=== PATIENT | female | born 1985 | race Two or more races ===

== ENCOUNTER 2017-11-16 18:56 | Emergency (ER) | END 2017-11-16 22:30 | disposition home or self-care (01) ==

== ENCOUNTER 2019-01-25 13:45 | Outpatient (CLI) | payer MEDICAID ==
[~2019-01-25] VITALS: Ht 149.9 cm; Wt 73.6 kg
[~2019-01-25 13:45] MED LIST: DIAZ5TAB PO; IBUP-1542 PO; INSU100C SQ; MED4DP PO; NPH,100I5 SQ
[2019-01-25 14:09] VITALS: Ht 149.9 cm; Wt 73.6 kg
[2019-01-25 14:19] VITALS: BP 128/77; PULSE 78; RESP 18
== END 2019-01-25 15:45 | disposition home or self-care (01) ==
LOC: L-D 13:45 → OBT 13:45
PROVIDERS: ATTEND Specialist
DX: O62.9 Abnormality of forces of labor, unspecified (principal); Z3A.35 35 weeks gestation of pregnancy
CPT/HCPCS: 76818; 81001; 87086; Z7500; G0463

== ENCOUNTER 2019-02-11 18:11 | Inpatient (IN) | payer MEDICAID ==
[~2019-02-11] VITALS: Ht 149.9 cm; Wt 75.0 kg
[~2019-02-11 18:11] MED LIST changes: -DIAZ5TAB PO; -IBUP-1542 PO; -MED4DP PO
[2019-02-11] MEDS ORDERED: LACTATED RINGER'S 1,000 ML IV PRN (18:46)
[2019-02-11] MEDS ORDERED: LIDOCAINE 1% (MPF) 30 ML INJ INJ PRN (19:00)
[2019-02-11] MEDS ORDERED: MISOPROSTOL 200 MCG TAB PR PRN (19:00)
[2019-02-11] MEDS ORDERED: BUTORPHANOL 2 MG INJ IV PRN (19:00)
[2019-02-11] MEDS ORDERED: IBUPROFEN 600 MG TAB PO PRN (19:00)
[2019-02-11] MEDS ORDERED: OXYTOCIN 30 UNITS/LR 500 ML IV PRN (19:00)
[2019-02-11] MEDS ORDERED: METHYLERGONOVINE 0.2 MG INJ IM PRN (19:00)
[2019-02-11] MEDS ORDERED: OXYTOCIN 30 UNITS/LR 500 ML IV SCH ×3 (19:00→19:30)
[2019-02-11] MEDS ORDERED: CARBOPROST 250 MCG INJ IM PRN (19:00)
[2019-02-11] MEDS ORDERED: AMPICILLIN 2 GM/NS (PMX) 100 ML IV ONE (19:00)
[2019-02-11] MEDS ORDERED: MINERAL OIL LIGHT 10 ML VIAL TOP PRN (19:00)
[2019-02-11 19:01] VITALS: Ht 149.9 cm; Wt 75.0 kg
[2019-02-11] MEDS: LACTATED RINGER'S 1,000 ML IV SCH (20:23)
[2019-02-11] MEDS ORDERED: AMPICILLIN 1 GM/NS (PMX) 50 ML IV SCH (23:00)
[2019-02-12] MEDS: DEXTROSE 5%-LR 1,000 ML IV SCH ×4 (00:33→14:47)
[2019-02-12] MEDS ORDERED: AMPICILLIN 1 GM/NS (PMX) 50 ML IV SCH (01:30)
[2019-02-12] MEDS ORDERED: FENTAnyl 2MCG/ML-ROPIV 0.2% 100 ML ONE (02:07)
[2019-02-12] MEDS ORDERED: FENTAnyl 2MCG/ML-ROPIV 0.2% 100 ML BAG EPI SCH (02:30)
[2019-02-12] MEDS ORDERED: NALOXONE (0.4 MG/ML) INJ IV PRN ×2 (02:30→11:00)
[2019-02-12] MEDS: LACTATED RINGER'S 1,000 ML IV SCH ×3 (08:21→18:55)
[2019-02-12] MEDS ORDERED: CEFAZOLIN 2 GM/50 ML (PMX) 50 ML IVPB SCH (08:30)
[2019-02-12] MEDS ORDERED: OXYTOCIN 30 UNITS/LR 500 ML IV SCH (08:30)
[2019-02-12] MEDS ORDERED: MISOPROSTOL 200 MCG TAB PR PRN ×2 (08:30→09:30)
[2019-02-12] MEDS ORDERED: METHYLERGONOVINE 0.2 MG INJ IM PRN (08:30)
[2019-02-12] MEDS ORDERED: CARBOPROST 250 MCG INJ IM PRN (08:30)
[2019-02-12] MEDS ORDERED: OXYTOCIN 30 UNITS/LR 500 ML IV PRN (08:30)
[2019-02-12] MEDS ORDERED: morphine SULFATE/PF (10 MG/10 ML) INJ ONE (08:40)
[2019-02-12] MEDS ORDERED: OXYTOCIN 10 UNIT INJ ONE (08:40)
[2019-02-12] MEDS ORDERED: AZITHROMYCIN 500MG/NS (PMX) 250 ML ONE (09:15)
[2019-02-12] MEDS ORDERED: CEFAZOLIN 1 GM INJ ONE (09:15)
[2019-02-12] MEDS ORDERED: LACTATED RINGER'S 1,000 ML IV SCH (09:21)
[2019-02-12] MEDS ORDERED: OXYCODONE/ACETAMINOPHEN (5/325) TAB PO PRN ×2 (09:30)
[2019-02-12] MEDS ORDERED: NA PHOSPHATE/BIPHOS 133 ML ENEMA PR PRN (09:30)
[2019-02-12] MEDS ORDERED: AZITHROMYCIN 500 MG in SOD CHLORIDE 0.9% 250 ML IVPB ONE (09:30)
[2019-02-12] MEDS ORDERED: LANOLIN HPA 1 PKT TOP PRN (09:30)
[2019-02-12] MEDS ORDERED: ONDANSETRON 4 MG INJ ONE (10:06)
[2019-02-12] MEDS ORDERED: ONDANSETRON 4 MG INJ IV PRN (11:00)
[2019-02-12] MEDS ORDERED: morphine 2 MG INJ IV PRN (11:00)
[2019-02-12] MEDS ORDERED: DIPHENHYDRAMINE 50 MG INJ IV PRN (11:00)
[2019-02-12 12:19] VITALS: BP 130/58; PULSE 83; RESP 18
[2019-02-12 13:00] VITALS: BP 115/59; PULSE 75; RESP 18
[2019-02-12 16:18] VITALS: BP 121/65; PULSE 86; RESP 18
[2019-02-12] MEDS: KETOROLAC 30 MG INJ IV PRN ×2 (16:18→23:13)
[2019-02-12 20:30] VITALS: BP 100/55; PULSE 83; RESP 18
[2019-02-12] MEDS: SENNA/DOCUSATE NA (8.6MG/50MG) TAB PO SCH (21:00)
[2019-02-13 00:05] VITALS: BP 101/56; PULSE 81; RESP 18
[2019-02-13] MEDS: LACTATED RINGER'S 1,000 ML IV SCH (01:49)
[2019-02-13] MEDS: DEXTROSE 5%-LR 1,000 ML IV SCH (02:46)
[2019-02-13 03:00] VITALS: BP 104/64; PULSE 84; RESP 18
[2019-02-13] MEDS: KETOROLAC 30 MG INJ IV PRN (07:14)
[2019-02-13 09:07] VITALS: BP 131/76; PULSE 86; RESP 20
[2019-02-13] MEDS: SENNA/DOCUSATE NA (8.6MG/50MG) TAB PO SCH ×2 (10:31→21:28)
[2019-02-13] MEDS: IBUPROFEN 600 MG TAB PO SCH ×2 (11:43→18:12)
[2019-02-13 16:00] VITALS: BP 120/74; PULSE 85; RESP 18
[2019-02-13 20:15] VITALS: BP 134/69; PULSE 63; RESP 20
[2019-02-13] MEDS: OXYCODONE/ACETAMINOPHEN (5/325) TAB PO PRN (21:28)
[2019-02-14] MEDS: IBUPROFEN 600 MG TAB PO SCH ×5 (00:17→23:34)
[2019-02-14 04:32] VITALS: BP 133/83; PULSE 91; RESP 20
[2019-02-14 08:00] VITALS: BP 119/74; PULSE 85; RESP 18
[2019-02-14 08:57] VITALS: BP 119/74; PULSE 85; RESP 18
[2019-02-14] MEDS: SENNA/DOCUSATE NA (8.6MG/50MG) TAB PO SCH ×2 (10:31→21:58)
[2019-02-14] MEDS: OXYCODONE/ACETAMINOPHEN (5/325) TAB PO PRN (10:44)
[2019-02-14 16:01] VITALS: BP 107/56; PULSE 85; RESP 16
[2019-02-14 20:00] VITALS: BP 112/62; PULSE 84; RESP 16
[2019-02-15 04:00] VITALS: BP 134/78; PULSE 97; RESP 18
[2019-02-15] MEDS: IBUPROFEN 600 MG TAB PO SCH ×2 (06:20→11:51)
[2019-02-15 08:00] VITALS: BP 122/67; PULSE 81; RESP 17
[2019-02-15] MEDS ORDERED: MEASLES,MUMPS,RUBELLA VACCINE INJ SC* ONE (09:00)
[2019-02-15] MEDS ORDERED: DIPHTH/TET/ACEL PERTUSS (ADULT) 0.5 ML VIAL IM* ONE (09:00)
[2019-02-15] MEDS: SENNA/DOCUSATE NA (8.6MG/50MG) TAB PO SCH (09:00)
== END 2019-02-15 15:05 | disposition home or self-care (01) | DRG 788 ==
LOC: OBT 18:11 → L-D 18:12 → OBT 18:50 → L-D 19:05 → PP1 02-12 12:58
PROVIDERS: ADMIT Obstetrics & Gynecology; ATTEND Specialist
PROC: 10D00Z1 Extraction of Products of Conception, Low, Open Approach (ICD-10-PCS; principal; 2019-02-11)
DX: O76 Abnormality in fetal heart rate and rhythm complicating labor and delivery (principal); O24.424 Gestational diabetes mellitus in childbirth, insulin controlled; Z3A.38 38 weeks gestation of pregnancy; Z37.0 Single live birth
CPT/HCPCS: 36415; 36600; 62322; 76815; 82803; 82947; 82962; 85025; 85610; 85730; 86592; 86850; 86900; 86901; 87340; 93970; 99464; G0463; J0290; J0456; J0690; J1200; J1885; J2270; J2274; J2405; J2590; J3010; J7050; J7120; J7121